=== PATIENT | female | born 1965 | race American Indian/Alaskan Native ===

== ENCOUNTER 2021-07-07 06:39 | Emergency (ER) | payer MEDICARE ==
[2021-07-07 07:41] VITALS: BP 141/98
--- NOTE | 2021-07-07 08:18 | Emergency Department Report ---
ED Female HPI - General Chief complaint: Urogenital-Female Stated complaint: TROUBLE URINATING Time Seen by Provider: 07/07/21 08:13 Source: patient Mode of arrival: Ambulatory Limitations: No Limitations - History of Present Illness Initial comments: 56-year-old -British female presents to the emergency room complaining of urinary retention. Patient states that she has not been able to void this morning. She states that the symptoms started earlier this week and appears aggressively gotten worse. She does admit to left side flank pain that travels to the front but is very minimum. She is menopausal. She had an oophorectomy for removal of her right ovary. She denies any fever chills denies any dysuria no urinary frequency some urgency but not able to produce urine. Patient has a past medical history of hypertension COPD and diabetes. Patient is currently on Jardiance and Lantus. He takes amlodipine for her hypertension. Onset/Timin -: days(s) Radiation: L flank Severity: mild Consistency: intermittent Improves with: none Are you Now?: No Associated Symptoms: shortness of breath, syncope, weakness, other (Urinary retention). denies: vaginal discharge, vaginal bleeding, abdominal pain, nausea/vomiting, fever/chills, headaches, loss of appetite, dysuria, hematuria, rash, seizure - Related Data Previous Rx's Medication Instructions Recorded Last Taken Type Docusate Sodium [Colace] 100 mg PO BID PRN #14 capsule 07/07/21 Unknown Rx Polyethylene Glycol 3350 [Miralax] 17 gm PO BID PRN #119 gram 07/07/21 Unknown Rx cephALEXin [Keflex] 250 mg PO Q6HR 7 Days #24 capsule 07/07/21 Unknown Rx Allergies Allergy/AdvReac Type Severity Reaction Status Date / Time lisinopril Allergy Unknown Verified 07/07/21 07:38 ED Review of Systems ROS: Stated complaint: TROUBLE URINATING Other details as noted in HPI Comment: All other systems reviewed and negative ED Past Medical Hx - Medications Home Medications: Home Medications Medication Instructions Recorded Confirmed Last Taken Type Docusate Sodium [Colace] 100 mg PO BID PRN #14 capsule 07/07/21 Unknown Rx Polyethylene Glycol 3350 [Miralax] 17 gm PO BID PRN #119 gram 07/07/21 Unknown Rx cephALEXin [Keflex] 250 mg PO Q6HR 7 Days #24 capsule 07/07/21 Unknown Rx ED Physical Exam - General Limitations: No Limitations General appearance: alert, in no apparent distress - Head Head exam: Present: atraumatic, normocephalic - Eye Eye exam: Present: normal appearance - ENT ENT exam: Present: mucous membranes moist - Neck Neck exam: Present: normal inspection - Respiratory Respiratory exam: Present: normal lung sounds bilaterally. Absent: respiratory distress - Cardiovascular Cardiovascular Exam: Present: regular rate, normal rhythm. Absent: systolic murmur, diastolic murmur, rubs, gallop - GI/Abdominal GI/Abdominal exam: Present: soft, normal bowel sounds - Extremities Exam Extremities exam: Present: normal inspection - Back Exam Back exam: Present: normal inspection, CVA tenderness (L) - Neurological Exam Neurological exam: Present: alert, oriented X3, normal gait - Psychiatric Psychiatric exam: Present: normal affect, normal mood - Skin Skin exam: Present: warm, dry, intact, normal color. Absent: rash ED Course Vital Signs 07/07/21 07:38 Temperature 97.9 F Pulse Rate 106 H Respiratory 16 Rate Blood Pressure 141/98 [Left] O2 Sat by Pulse 93 Oximetry ED Medical Decision Making - Radiology Data Radiology results: report reviewed [facility] [address] [place] [address] Cat Scan Report Signed Patient: PRECIOUS ASHLEY MR#: [id number] [birth year] : 1965 Acct:[id number] Age/Sex: 56 / F ADM Date: 07/07/21 Loc: ED Attending Dr: Ordering Physician: ABDULAZIZ ROMAN Date of Service: 07/07/21 Procedure(s): CT abdomen pelvis wo con Accession Number(s): [id number] cc: ABDULAZIZ ROMAN CT ABDOMEN AND PELVIS WITHOUT CONTRAST INDICATION / CLINICAL INFORMATION: Left flank pain that travels to the lower pelvic. TECHNIQUE: Axial CT images were obtained through the abdomen and pelvis without IV contrast. Sagittal and coronal reformatted images. All CT scans at this location are performed using CT dose reduction for ALARA by means of automated exposure control. COMPARISON: None available. FINDINGS: LOWER CHEST: No significant abnormality. LIVER: No significant abnormality. GALLBLADDER: No significant abnormality. BILE DUCTS: No significant abnormality. PANCREAS: No significant abnormality. SPLEEN: No significant abnormality. ADRENALS: No significant abnormality. RIGHT KIDNEY and URETER: No significant abnormality. LEFT KIDNEY and URETER: No significant abnormality. STOMACH and SMALL BOWEL: No significant abnormality. COLON: There is moderate to severe fecal matter throughout the right hemicolon. No evidence for obstruction, obvious mass or inflammatory changes. APPENDIX: No significant abnormality. PERITONEUM: No free fluid. No free air. No fluid collection. LYMPH NODES: No pathologic adenopathy is detected. AORTA and ARTERIES: Mild atherosclerotic calcification without acute abnormality. IVC and VEINS: No significant abnormality. URINARY BLADDER: The bladder is mostly empty but no gross abnormality. REPRODUCTIVE ORGANS: No significant abnormality. ADDITIONAL FINDINGS: None. SKELETAL SYSTEM: Mild lumbar spondylosis. No fracture or suspicious bony lesion. IMPRESSION: No acute process is appreciated. No clear explanation for left flank pain. No nephrolithiasis is appreciated. Moderate to severe constipation. Signer Name: Benton Hayward Jr, MD Signed: 07/07/2021 8:37 AM Workstation Name: [id number] Transcribed By: TTR Dictated By: BENTON HAYWARD JR, MD Electronically Authenticated By: BENTON HAYWARD JR, MD Signed Date/Time: 07/07/21836 DD/ 1 TD/TT: - Medical Decision Making 56-year-old -British female presents to the emergency room complaining of urinary retention. Patient states that she has not been able to void this morning. She states that the symptoms started earlier this week and appears aggressively gotten worse. She does admit to left side flank pain that travels to the front but is very minimum. She is menopausal. She had an oophorectomy for removal of her right ovary. She denies any fever chills denies any dysuria no urinary frequency some urgency but not able to produce urine. Patient has a past medical history of hypertension COPD and diabetes. Patient is currently on Jardiance and Lantus. He takes amlodipine for her hypertension. Urinalysis CT abdomen/pelvic without contrast Urinalysis shows large amount of leukoesterase small amount of blood. CT scan shows no evidence of kidney stones shows moderate to severe constipation. Patient be placed on MiraLAX Colace and to follow-up with her primary care provider. I will also treat her for urinary tract infection Critical care attestation.: If time is entered above; I have spent that time in minutes in the direct care of this critically ill patient, excluding procedure time. ED Disposition Clinical Impression: Acute urinary retention, Constipation Disposition: 01 HOME / SELF CARE / HOMELESS Is pt being admited?: No Does the pt Need Aspirin: No Condition: Stable Instructions: Constipation, Adult, Acute Urinary Retention, Female, [id number] Additional Instructions: Urinalysis shows a small urinary tract infection, CT scan shows no kidney stone but it shows moderate to severe constipation. I would like for you to take them MiraLAX and Colace. You need to drink at least 32 ounces of water daily. Be sure you are getting some exercising which can consist of just walking daily. Follow-up with your primary care provider. I am also placing you on Keflex for urinary tract infection. Prescriptions: Docusate Sodium [Colace] 100 mg PO BID PRN #14 capsule PRN Reason: Constipation cephALEXin [Keflex] 250 mg PO Q6HR 7 Days #24 capsule Polyethylene Glycol 3350 [Miralax] 17 gm PO BID PRN #119 gram PRN Reason: Constipation Referrals: PRIMARY CARE, [Primary Care Provider] - 3-5 Days Your, primary care provider [Other] - 3-5 Days Forms: Work/School Release Form(ED) Time of Disposition: 09:32
[2021-07-07 08:35] LABS: Bacteria,Urine 1+ /HPF (Negative); Bilirubin,Urine NEG (Negative); Blood,Urine SM (Negative); Color,Urine Yellow (Yellow); Mucus,Urine FEW /HPF; Protein,Urine <15 mg/dL mg/dL (Negative); Urobilinogen,Urine < 2.0 mg/dL (<2.0)
--- NOTE | 2021-07-07 08:41 | Cat Scan Report ---
CT ABDOMEN AND PELVIS WITHOUT CONTRAST INDICATION / CLINICAL INFORMATION: Left flank pain that travels to the lower pelvic. TECHNIQUE: Axial CT images were obtained through the abdomen and pelvis without IV contrast. Sagittal and lemons l reformatted images. All CT scans at this location are performed using CT dose reduction for ALARA b y means of automated exposure control. COMPARISON: None available. FINDINGS: LOWER CHEST: No significant abnormality. LIVER: No significant abnormality. GALLBLADDER: No significant abnormality. BILE DUCTS: No significant abnormality. PANCREAS: No significant abnormality. SPLEEN: No significant abnormality. ADRENALS: No significant abnormality. RIGHT KIDNEY and URETER: No significant abnormality. LEFT KIDNEY and URETER: No significant abnormality. STOMACH and SMALL BOWEL: No significant abnormality. COLON: There is moderate to severe fecal matter throughout the right hemicolon. No evidence for obstr uction, obvious mass or inflammatory changes. APPENDIX: No significant abnormality. PERITONEUM: No free fluid. No free air. No fluid collection. LYMPH NODES: No pathologic adenopathy is detected. AORTA and ARTERIES: Mild atherosclerotic calcification without acute abnormality. IVC and VEINS: No significant abnormality. URINARY BLADDER: The bladder is mostly empty but no gross abnormality. REPRODUCTIVE ORGANS: No significant abnormality. ADDITIONAL FINDINGS: None. SKELETAL SYSTEM: Mild lumbar spondylosis. No fracture or suspicious bony lesion. IMPRESSION: No acute process is appreciated. No clear explanation for left flank pain. No nephrolithiasis is appr eciated. Moderate to severe constipation. Signer Name: Benton Hayward Jr, MD Signed: 07/07/2021 8:37 AM Workstation Name: [id number]
== END 2021-07-07 09:59 | disposition home or self-care (01) ==
LOC: ED 06:39
DX: R33.9 Retention of urine, unspecified (principal); K59.00 Constipation, unspecified; Z88.8 Allergy status to other drugs, medicaments and biological substances; Z79.899 Other long term (current) drug therapy
CPT/HCPCS: 74176; 81001; 99284